=== PATIENT | female | born 1995 | race Caucasian/White ===

== ENCOUNTER 2018-05-20 09:42 | Emergency (ER) | payer OTHER ==
[2018-05-20 10:32] VITALS: BP 147/86
--- NOTE | 2018-05-20 10:54 | UC ---
FLU HPI - HPI Summary HPI Summary: 23-year-old female presents with onset of headache, fatigue, general malaise, nasal congestion, clear nasal discharge, sore throat, and occasionally productive cough for clear sputum on 05/15/2018. Symptoms were associated with intermittent fever and chills. Max temp of 104 F. Reports last fever was 2 days ago and that her other symptoms have been improving over the last 2-3 days. Denies dysphagia, chest pain, shortness of breath, wheezing, abdominal pain, nausea, vomiting, or diarrhea. - History of Current Complaint Chief Complaint: UCRespiratory Stated Complaint: FEVER,COUGH,CONGESTION Time Seen by Provider: 05/20/18 10:43 Hx Obtained From: Patient Hx Last Menstrual Period: 05/19/18 Pain Intensity: 0 - Allergy/Home Medications Allergies/Adverse Reactions: Allergies Allergy/AdvReac Type Severity Reaction Status Date / Time azithromycin [From Zithromax] Allergy Unknown Verified 05/20/18 10:28 Reaction Details "Something with a "C"; cough Allergy Vomiting Uncoded 05/20/18 10:28 syrup" Home Medications: Home Medications Albuterol HFA INHALER* [Ventolin HFA Inhaler*] 1 - 2 puff INH Q4H PRN 05/20/18 [ History Confirmed 05/20/18] Oral Control 1 tab PO DAILY 05/20/18 [History Confirmed 05/20/18] SUMAtriptan TAB* [Imitrex TAB*] 50 mg PO SEE INSTRUCTIONS 05/20/18 [History Confirmed 05/20/18] PMH/Surg Hx/FS Hx/Imm Hx Previously Healthy: Yes Respiratory History: Asthma Neurological History: Migraine - Surgical History Surgical History: Yes Surgery Procedure, Year, and Place: Left Wrist Fracture Repair s/p [facility], [facility] [place], [place] - Family History Known Family History: Positive: Non-Contributory - Social History Occupation: Employed Part-time, Student Lives: Dormitory/Roommates Alcohol Use: None Substance Use Type: Marijuana Substance Use Comment - Amount & Last Used: Daily & 05/19/18 Smoking Status (MU): Never Smoked Tobacco Review of Systems All Other Systems Reviewed And Are Negative: Yes Constitutional: Positive: Fever, Chills, Fatigue Skin: Negative: Rash Eyes: Negative: Drainage, Eye Redness ENT: Positive: Sore Throat, Nasal Discharge, Sinus Congestion. Negative: Ear Ache, Sinus Pain/Tenderness Respiratory: Positive: Cough. Negative: Shortness Of Breath Cardiovascular: Negative: Palpitations, Chest Pain Gastrointestinal: Negative: Abdominal Pain, Vomiting, Diarrhea, Nausea Genitourinary: Positive: Negative Musculoskeletal: Positive: Negative Neurological: Positive: Headache Is Patient Immunocompromised?: No Physical Exam - Summary Physical Exam Summary: GENERAL APPEARANCE: Well developed, well nourished, alert and cooperative, and appears to be in no acute distress. EYES: Conjunctiva clear. No drainage. Vision is grossly intact. EARS: External auditory canals and tympanic membranes clear, hearing grossly intact. NOSE: Mild nasal congestion with clear nasal discharge. THROAT: Mild pharyngeal erythema. No tonsilar inflammation, swelling, exudate, or lesions. Uvula midline. Oral cavity normal. Teeth and gingiva in good general condition. NECK: Neck supple, non-tender without lymphadenopathy. CARDIAC: Normal S1 and S2. No S3, S4 or murmurs. Rhythm is regular. There is no peripheral edema, cyanosis or pallor. Extremities are warm and well perfused. Capillary refill is less than 2 seconds. Peripheral pulses intact. LUNGS: Clear to auscultation without rales, rhonchi, wheezing or diminished breath sounds. Occasional non-productive cough. ABDOMEN: Positive bowel sounds. Soft, nondistended, nontender. No guarding or rebound. No masses or hepatosplenomegally. MUSKULOSKELETAL: ROM intact to all extremities. No joint erythema or tenderness. Normal muscular development. Normal gait. SKIN: Skin normal color, texture and turgor with no lesions or eruptions. Triage Information Reviewed: Yes Vital Signs: Initial Vital Signs Temp 97.2 F 05/20/18 10:25 Pulse 71 05/20/18 10:25 Resp 16 05/20/18 10:25 BP 147/86 05/20/18 10:25 Pulse Ox 99 05/20/18 10:25 Vital Signs Reviewed: Yes Flu Course/Dx - Course Course Of Treatment: 23-year-old female presents with onset of headache, fatigue , general malaise, nasal congestion, clear nasal discharge, sore throat, and occasionally productive cough for clear sputum on 05/15/2018. Symptoms were associated with intermittent fever and chills. Max temp of 104 F. Reports last fever was 2 days ago and that her other symptoms have been improving over the last 2-3 days. Denies dysphagia, chest pain, shortness of breath, wheezing, abdominal pain, nausea, vomiting, or diarrhea. Afebrile. Vital signs stable. Exam reveals an young adult female in no acute distress with mild nasal congestion, clear nasal discharge, mild pharyngeal erythema without tonsillar swelling or exudate, no cervical lymphadenopathy, clear bilateral breath sounds , an occasionally nonproductive cough, and otherwise unremarkable exam. Clinically symptoms are suggestive of influenza however considering the duration of her symptoms testing was deferred. Recommending symptomatic treatment for a viral upper respiratory infection at this time. She was provided a return to work note as she has been fever free for over 24 hours without the use acetaminophen or ibuprofen. She is to return here or follow-up with her primary care provider if symptoms persist. Anticipatory guidance and warning symptoms were reviewed with the patient. Verbalizes understanding and agrees care. - Differential Dx/Diagnosis Differential Diagnosis/HQI/PQRI: Bronchitis, Influenza, Pneumonia, Upper Respiratory Infection Provider Diagnosis: Viral URI with cough Discharge - Sign-Out/Discharge Documenting (check all that apply): Patient Departure All imaging exams completed and their final reports reviewed: No Studies - Discharge Plan Condition: Stable Disposition: HOME Patient Education Materials: Upper Respiratory Infection (ED) Forms: *Work Release Referrals: Keith HAY,Eulalio [Primary Care Provider] - Additional Instructions: Your history and exam are consistent with a viral upper respiratory infection. Viral infections do not respond to antibiotics and are limited to the treatment of symptoms. Viral infections typically run their course in 7-10 days. Drink plenty of fluids to avoid dehydration especially if you are running any fever. Use a saline rinse kit such as Neti Pot or NeilMed at least twice a day to help thin secretions and promote drainage of the sinuses. Take over the counter acetaminophen (Tylenol) or ibuprofen (Advil, Motrin) according to directions as needed for pain or fever. Use salt water gargles several times a day if you have a sore throat. You may also use Chloraseptic spray or Cepacol lonzenges according to directions which contain a numbing medication and can provide some temporary relief from your sore throat. Return here or follow up with your primary care provider in 7 days if symptoms persist. Seek immediate medical attention in the emergency room if you have fever greater than 100.5 F despite taking acetaminophen or ibuprofen, have chest pain , difficulty breathing, are unable to swallow, or have any worsening of symptoms. - Billing Disposition and Condition Condition: STABLE Disposition: Home - Attestation Statements Provider Attestation: Per institutional requirements, I have reviewed the chart, however, I was not consulted specifically or made aware of this patient by the midlevel provider. I did not personally evaluate, interact with , or disposition this patient.
== END 2018-05-20 11:06 | disposition home or self-care (01) ==
LOC: UCCORT 09:42
DX: J06.9 Acute upper respiratory infection, unspecified (principal); R05 Cough; J45.909 Unspecified asthma, uncomplicated; G43.909 Migraine, unspecified, not intractable, without status migrainosus; Z88.1 Allergy status to other antibiotic agents; Z88.8 Allergy status to other drugs, medicaments and biological substances; Z79.899 Other long term (current) drug therapy
CPT/HCPCS: 99201; G0463